=== PATIENT | female | born 1995 | race Caucasian/White ===

== ENCOUNTER → 2021-02-20 | Outpatient (CLI) | payer BC, OTHER ==
[~2021-02-20] VITALS: Ht 167.6 cm; Wt 61.2 kg
[~2021-02-20] MED LIST: BENTYL 10 MG CA10 MG PO; CELEBREX 200 M200 MG PO; CYMBALTA60 MG PO; NEXPLANON68 MG SQ; PRILOSEC OTC20 MG PO; VITAMIN D32400 UNIT/ PO; XYZAL5 MG PO
[2021-02-20 07:38] VITALS: BP 116/73
[2021-02-20 07:54] LABS: ABSOLUTE NEUTROPHILS 2.7 thou/uL (1.4-8.2); HEMATOCRIT 37.8 % (37.0-47.0); MCH 28.2 pg (26.0-34.0); MCHC 33.4 g/dL (28.0-37.0); PLATELET COUNT 285 thou/uL (150-400)
[2021-02-20 07:56] LABS: BASOPHILS 0.7 % (0.0-2.0); EOSINOPHILS 2.2 % (0.0-3.0); HEMOGLOBIN 12.6 gm/dL (12.0-15.0); LYMPHOCYTES 45.5 % (24.0-44.0); MCV 84.5 fL (80.0-100.0); MONOCYTES 7.6 % (1.0-8.0); RBC 4.47 mil/uL (4.20-5.00); RDW 12.4 % (10.5-14.5); WBC 6.2 thou/uL (4.0-11.0)
[2021-02-20 08:06] LABS: CALCIUM 8.8 mg/dL (8.5-10.1); CREATININE 0.8 mg/dL (0.6-1.0); POTASSIUM 3.5 mmol/L (3.5-5.1)
[2021-02-20 08:11] LABS: APTT 22.8 Seconds (24.5-32.8); INR 0.97; PROTIME 10.6 Seconds (10.5-12.1)
[2021-02-20 08:12] LABS: ALBUMIN 3.6 g/dL (3.4-5.0); TOTAL BILIRUBIN 0.4 mg/dL (0.2-1.0); TOTAL PROTEIN 6.4 g/dL (6.4-8.2)
--- NOTE | 2021-02-22 11:33 | P ---
[facility] [place] [address] PROCEDURE REPORT Name: JOI STONER Yair [facility] [id number] Admission: 02/20/21 Attend Phys: John Hicks MD Discharge: Date of : 97 Report #: [id number] THIS REPORT FOR: cc: Carmen Augustin MD, Kimberly A. MD Couchonnal, Luis F. MD ~ DOC #: [id number] cc: DO John Walter MD DATE OF SERVICE: 02/20/2021 PREOPERATIVE DIAGNOSIS: Supraventricular tachycardia. POSTOPERATIVE DIAGNOSES: 1. Typical atrioventricular gene reentrant tachycardia. 2. Atypical atrioventricular gene reentrant tachycardia. HISTORY: The patient is a 26-year-old, who has been having episodes of palpitations going on for 10 years, especially when she used to run cross country. She has been having more frequent episodes of SVT, which had been documented on an implantable loop recorder. She is here for ablation. PROCEDURE PERFORMED: 1. SVT ablation -- CPT code 10245. 2. Left atrial pacing recording, CPT code 93957. 3. Program stimulation pacing after IV drug infusion, CPT code 22107. 4. 3D mapping, CPT code 04448. ANESTHESIA: The patient underwent MAC anesthesia with no anesthesia-related complications. DESCRIPTION OF PROCEDURE: The patient underwent informed consent. We discussed the details of the procedure including the risks, which include but not limited to bleeding, infection, vascular damage, cardiac perforation, pneumothorax. I do not see a pneumothorax. Also, risks include damage to the [place] conduction system requiring permanent pacemaker. She and her mother understood these risks and were willing to proceed. The patient was brought to the EP laboratory in a fasting and sedated state, prepped and draped in sterile fashion. I obtained access to the bilateral femoral veins placing an 8 and a 6-Marshallese short sheath in the right femoral vein and a 6 and 7-Marshallese short sheath in the left femoral vein. Under fluoroscopy, I placed 3 quadripolar catheters at the HRA, His and RV positions and a decapolar catheter easily in the coronary sinus. A basic EP study was performed. At baseline, the patient was in sinus rhythm with sinus cycle length [address] [facility] [address] [place] [address] PROCEDURE REPORT Name: JOI STONER Room #: REG [facility]#: [id number] Admission: 02/20/21 Attend Phys: John Hicks MD Discharge: Date of : 97 Report #: [id number] milliseconds, VT interval 185 milliseconds, QRS duration 95 milliseconds, QT interval 385 milliseconds, AH interval 97 milliseconds and HV interval 36 milliseconds. Next, a basic EP study was performed. With atrial burst pacing, AV block was noted at 450 milliseconds. Atrial ERP was noted at 300 milliseconds at [address] cycle length. Ventricular pacing was performed and there was evidence of no VA conduction at baseline. Pacing at 600 milliseconds. Next, isoproterenol infusion was initiated and I could induce SVT while pacing from the ventricle. This SVT demonstrated a cycle length of 320 milliseconds, septal VA time of 150 milliseconds. I could not entrain this on several attempts. I was then able to easily induce this with single ventricular extrastimuli at 290 milliseconds at a [address] cycle length. This was very easily inducible, but again I could never entrain it as this would terminate the tachycardia. There was one occasion where this tachycardia did terminate with consistent with either a septal accessory pathway versus atypical AV gene reentrant tachycardia. Next, I continue trying to induce arrhythmia and I could no longer induce it. I increased the isoproterenol to 3. I then went down to 2, down to 1 and then 2.5 and we tested for another hour and this tachycardia that was now easily inducible, I could no longer induce. Therefore, I increased the isoproterenol up to 4 mcg per minute and performed aggressive atrial burst pacing and the patient went into SVT with a tachycardia cycle length of 300 milliseconds and a septal VA time of 35 milliseconds and again I attempted to entrain this and this terminated the tachycardia. I continued on the higher dose isuprel and could no longer re-induce this tachycardia, but this tachycardia clearly looks like typical AVNRT and by inference, I think the other arrhythmia was likely an atypical AVNRT, as there were no physiological proper use suggest a septal pathway. VA conduction was both midline and decremental. 3D MAPPING AND ABLATION: Next, I placed a 4-mm ablation catheter via an SR0 sheath at the level of the slow pathway, 3D geometry was created with specific emphasis of the His bundle region and slow pathway region. I performed a total of 7 ablation lesions with 3, 4 and 5 having nice slow junctionals at around 60 beats per minute with no evidence of AV gene compromise. Next, I reinitiated the patient back on isoproterenol and with a single atrial extrastimuli, the patient did have 2 AV gene echoes. Therefore, I went back and performed additional ablation. I went slightly higher than the prior lesions and then I performed a total of 4 more lesions and then repeat testing was performed on isoproterenol 3 mcg per minute. We tested for approximately 30 minutes and there was no further SVT and there were no further echoes. VA block was at 360. AV block was at 300 milliseconds was at 380 milliseconds. As such, it appeared that the AVNRT was now cured. We also no longer saw the atypical form of AVNRT with aggressive pacing. As such, the procedure was concluded. The patient remained in sinus rhythm, sinus cycle length of 530 milliseconds, VT interval 140 milliseconds, QRS duration 90 milliseconds, QT interval of 340 milliseconds. Of note, I did give some IV heparin 3000 units during the [facility] [address] [place] [address] PROCEDURE REPORT Name: JOI STONER Room #: [facility]#: [id number] Admission: 02/20/21 Attend Phys: John Hicks MD Discharge: Date of : 97 Report #: [id number] procedure. There were no procedure-related complications. CONCLUSION: 1. 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 2. Normal SA gene function. 3. Normal AV gene function. 4. Normal His-Purkinje function. 5. No other inducible arrhythmias on or off isoproterenol. MD ARACELI Jasmine/JASWANT/STEPHANIE <ELECTRONICALLY SIGNED> By: John Hicks MD 02/22/21 1133 [id number] John Hicks MD /ritchie
== END | disposition home or self-care (01) ==
LOC: CATH 06:34
PROVIDERS: ATTEND Internal Medicine Cardiovascular Disease
DX: I47.1 Supraventricular tachycardia (principal); R00.2 Palpitations; M19.90 Unspecified osteoarthritis, unspecified site; G43.909 Migraine, unspecified, not intractable, without status migrainosus; M79.7 Fibromyalgia; K21.9 Gastro-esophageal reflux disease without esophagitis; Z98.890 Other specified postprocedural states; Z79.899 Other long term (current) drug therapy; Z20.822 Contact with and (suspected) exposure to COVID-19; Z88.0 Allergy status to penicillin; Z88.8 Allergy status to other drugs, medicaments and biological substances
CPT/HCPCS: 62110; 62900; 70005

== ENCOUNTER → 2021-09-02 | Outpatient (CLI) | payer BC, OTHER | LOC: SJCVCIMAG 11:09 | PROVIDERS: ATTEND Internal Medicine Cardiovascular Disease | DX: I47.1 Supraventricular tachycardia (principal) ==

== ENCOUNTER → 2021-09-30 | Outpatient (CLI) | payer BC, OTHER ==
[~2021-09-30] VITALS: Ht 167.6 cm; Wt 73.9 kg
[~2021-09-30] MED LIST changes: +XARELTO20 MG PO
--- NOTE | ~2021-09-30 | P ---
[facility] [place] [address] PROCEDURE REPORT Name: JOI STONER Yair Room #: REG [facility]#: [id number] Admission: 09/30/21 Attend Phys: John Hicks MD Discharge: Date of : 97 Report #: [id number] THIS REPORT FOR: cc: Carmen Augustin MD, Kimberly A. MD Couchonnal, Luis F. MD ~ DATE OF SERVICE: 09/30/2021 PREOPERATIVE DIAGNOSIS: Supraventricular tachycardia. POSTOPERATIVE DIAGNOSIS: Supraventricular tachycardia. 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 She is here for a repeat EP study and possible ablation. PROCEDURES PERFORMED: 1. EP study, CPT code 65682. 2. EP left atrial pacing recording, CPT code 48394. 3. Program stimulation pacing after IV drug infusion, CPT code 14039. ANESTHESIA: The patient underwent MAC anesthesia with no anesthesia related complications. DESCRIPTION OF PROCEDURE: The patient underwent informed consent. She was then brought to the EP laboratory in a fasting and sedated state, prepped and draped in a standard fashion. I obtained access to the bilateral femoral veins placing an 8, 6 and 7-[place] short sheaths using the modified Seldinger technique. Under fluoroscopy, I placed 3 quadripolar catheters at the HRA, His and RV positions and a decapolar catheter into the coronary sinus for left atrial pacing and recording. A basic EP study was then performed. At baseline, the patient was in sinus rhythm, sinus cycle length of 655 milliseconds, [place] interval 160 milliseconds, QRS duration 90 milliseconds, QT interval 370 milliseconds, AH interval 130 milliseconds, HV interval 35 milliseconds. Atrial burst pacing was performed and AV block was noted at 430 milliseconds. Fast pathway ERP was noted at 370 at [address] cycle length with evidence of a jump. Atrial ERP was noted at 270 milliseconds at a [address] cycle length. VA block was noted at 380 milliseconds with both midline and decremental VA conduction. Ventricular ERP was noted at 200 milliseconds at a [address] cycle length. Next, isoproterenol infusion was started at 2 mcg per minute and AV block was noted at 250 milliseconds. Atrial ERP was noted at 250 milliseconds at a [address] cycle length. VA block was noted to be less than 280 milliseconds and ventricular ERP was 160 milliseconds at a [address] cycle length. We tested on isoproterenol 2 mcg per minute for approximately 30 minutes and no SVT was [facility] [address] [place] [address] PROCEDURE REPORT Name: JOI STONER Room #: [id number] Admission: 09/30/21 Attend Phys: John Hicks MD Discharge: Date of : 89 Report #: [id number] induced. Isoproterenol was decreased to 1 mcg per minute and AV block was noted at 320 milliseconds. Atrial ERP was noted milliseconds at a [address] cycle length. AV gene ERP was noted at 220 milliseconds at a [address] cycle length. VA block was noted at 290 milliseconds and VA ERP was noted at 260 milliseconds at [address] cycle length. I turned off the isoproterenol and we continued testing and we could not bring on any SVT. As such, there was no evidence of inducible SVTs. There was 1 single AV gene echo. There was no double AV gene echoes. As such, the procedure was concluded. Catheters and sheaths were pulled. Hemostasis was obtained. The patient awoke neurologically and hemodynamically intact. No complications. No significant bleeding. CONCLUSIONS: 1. Comprehensive EP study with no evidence of recurrent AV gene reentrant tachycardia. 2. Normal SA gene function. 3. Normal AV gene function. 4. Normal His-Purkinje function. 5. No other inducible arrhythmias on or off isoproterenol. By: 0731 [id number] John Hicks MD /nt
[2021-09-30 07:26] VITALS: BP 113/75
[2021-09-30 07:30] LABS: ABSOLUTE NEUTROPHILS 2.8 thou/uL (1.4-8.2); BASOPHILS 0.5 % (0.0-2.0); EOSINOPHILS 2.5 % (0.0-3.0); HEMATOCRIT 38.1 % (37.0-47.0); HEMOGLOBIN 12.5 gm/dL (12.0-15.0); LYMPHOCYTES 42.6 % (24.0-44.0); MCH 26.5 pg (26.0-34.0); MCHC 32.9 g/dL (28.0-37.0); MCV 80.7 fL (80.0-100.0); MONOCYTES 7.2 % (1.0-8.0); PLATELET COUNT 222 thou/uL (150-400); POLYS 47.2 % (36.0-66.0); RBC 4.72 mil/uL (4.20-5.00); RDW 13.8 % (10.5-14.5); WBC 5.9 thou/uL (4.0-11.0)
[2021-09-30 07:50] LABS: APTT 24.2 Seconds (24.5-32.8); INR 0.96; PROTIME 10.5 Seconds (10.5-12.1)
[2021-09-30 07:52] LABS: CALCIUM 8.9 mg/dL (8.5-10.1); CREATININE 0.7 mg/dL (0.6-1.0); POTASSIUM 3.9 mmol/L (3.5-5.1)
[2021-09-30 07:58] LABS: ALBUMIN 3.7 g/dL (3.4-5.0); TOTAL BILIRUBIN 0.3 mg/dL (0.2-1.0); TOTAL PROTEIN 6.6 g/dL (6.4-8.2)
== END | disposition home or self-care (01) ==
LOC: CATH 06:33
PROVIDERS: ATTEND Internal Medicine Cardiovascular Disease
DX: I47.1 Supraventricular tachycardia (principal); R00.2 Palpitations; M19.90 Unspecified osteoarthritis, unspecified site; G43.909 Migraine, unspecified, not intractable, without status migrainosus; M79.7 Fibromyalgia; K21.9 Gastro-esophageal reflux disease without esophagitis; Z98.890 Other specified postprocedural states; Z79.899 Other long term (current) drug therapy; Z79.01 Long term (current) use of anticoagulants; Z88.0 Allergy status to penicillin; Z88.8 Allergy status to other drugs, medicaments and biological substances; Z20.822 Contact with and (suspected) exposure to COVID-19
CPT/HCPCS: 62110; 62900; 70005